=== PATIENT | male | born 1980 | race African-American/Black ===

== ENCOUNTER 2020-12-06 21:11 | Emergency (ER) | payer MEDICAID ==
[~2020-12-06] VITALS: Ht 165.1 cm; Wt 73.0 kg
[2020-12-06] MEDS ORDERED: IBUPROFEN 600MG TABLET PO ONE (23:30)
[2020-12-06] MEDS ORDERED: IBUP-2029 MT (23:32)
[2020-12-06 23:41] VITALS: BP 115/64
== END 2020-12-07 00:34 | disposition home or self-care (01) ==
LOC: ER 21:11
DX: K02.9 Dental caries, unspecified (principal); R03.0 Elevated blood-pressure reading, without diagnosis of hypertension
CPT/HCPCS: 99282

== ENCOUNTER 2022-03-21 08:50 | Emergency (ER) | payer MEDICAID, OTHER ==
[~2022-03-21] VITALS: Ht 172.7 cm; Wt 68.0 kg
[~2022-03-21 08:50] MED LIST: IBUP-2029 MT
[2022-03-21 09:05] VITALS: BP 108/67
== END 2022-03-21 09:52 | disposition left against medical advice (07) ==
LOC: ER 08:50
DX: Z53.21 Procedure and treatment not carried out due to patient leaving prior to being seen by health care provider (principal)

== ENCOUNTER 2022-05-02 01:04 | Emergency (ER) | payer OTHER ==
[~2022-05-02] VITALS: Ht 172.7 cm; Wt 78.9 kg
[2022-05-02] MEDS ORDERED: CHLO473M2 PO (03:55)
[2022-05-02 04:23] VITALS: BP 114/79
== END 2022-05-02 03:00 | disposition home or self-care (01) ==
LOC: ER 01:04
DX: K14.0 Glossitis (principal); K02.9 Dental caries, unspecified
CPT/HCPCS: 99281; 99282; 99283

== ENCOUNTER 2023-07-29 01:36 | Emergency (ER) | payer OTHER ==
[~2023-07-29 01:36] MED LIST changes: +CHLO473M2 PO
== END 2023-07-29 02:30 | disposition left against medical advice (07) ==
LOC: ER 02:26
DX: Z04.6 Encounter for general psychiatric examination, requested by authority (principal); Z53.21 Procedure and treatment not carried out due to patient leaving prior to being seen by health care provider